=== PATIENT | male | born 1975 | race Caucasian/White ===

== ENCOUNTER 2021-11-25 17:08 | Emergency (ER) | payer OTHER ==
[~2021-11-25 17:08] MED LIST: FLOMAX0.4 MG PO; IBUPROFEN600 MG PO; LORTAB 7.5-3251 EACH PO; ZOFRAN ODT 4 MG4 MG PO
[2021-11-25 17:46] LABS: HEMOGLOBIN 15.2 gm/dl (14.0-17.5); RED BLOOD COUNT 4.24 M/UL (4.20-5.50); WHITE BLOOD COUNT 5.4 K/UL (4.5-11.0)
[2021-11-25 18:35] LABS: BUN/CREATININE RATIO 17 (0-10)
[2021-11-25] MEDS ORDERED: TORADOL 10 MG T10 MG PO (19:11)
== END 2021-11-25 19:20 | disposition home or self-care (01) ==
LOC: ER1 17:08
PROVIDERS: Physician Assistant
DX: N13.2 Hydronephrosis with renal and ureteral calculous obstruction (principal); Z87.442 Personal history of urinary calculi; I10 Essential (primary) hypertension; Z90.89 Acquired absence of other organs; Z88.2 Allergy status to sulfonamides; F17.200 Nicotine dependence, unspecified, uncomplicated
CPT/HCPCS: 80053; 81001; 85025; 96374; 96375; 99284; J1885; J2405